=== PATIENT | female | born 1950 | race Caucasian/White ===

== ENCOUNTER → 2021-03-07 | Outpatient (CLI) | payer OTHER ==
[~2021-03-07] MED LIST: ASPIRIN EC81 MG PO; CELEBREX200 MG PO; DULOXETINE HCL30 MG PO; ENDOCET 7.5-321 EACH PO; FOLIC ACID1 MG PO; LEVOTHYROXINE112 MC1 PO; LISINOPRIL5 MG PO; METHOTREXATE T2.5 MG PO; OMEPRAZOLE20 M1 PO; VITAMIN D21250 MCG PO
[2021-03-07 10:59] LABS: HEMOGLOBIN 12.9 gm/dl (12.3-15.3); RED BLOOD COUNT 3.98 M/UL (4.00-5.10); WHITE BLOOD COUNT 7.3 K/UL (4.5-11.0)
[2021-03-07 11:21] LABS: BUN/CREATININE RATIO 28 (0-10)
== END ==
LOC: EDSTATUS 09:30 → OPSV2 09:30
PROVIDERS: Orthopaedic Surgery
DX: Z01.818 Encounter for other preprocedural examination (principal); M16.11 Unilateral primary osteoarthritis, right hip
CPT/HCPCS: 80048; 85027; 93005

== ENCOUNTER 2021-03-15 08:41 | Observation (INO) | payer OTHER ==
[~2021-03-15] VITALS: Ht 160 cm; Wt 76.7 kg
[~2021-03-15 08:41] MED LIST changes: -ASPIRIN EC81 MG PO; -ENDOCET 7.5-321 EACH PO
[2021-03-15 09:41] LABS: BUN/CREATININE RATIO 21 (0-10)
[2021-03-15] MEDS ORDERED: ASPIRIN EC81 MG PO (11:51)
[2021-03-15] MEDS ORDERED: ENDOCET 7.5-321 EACH PO (11:51)
[2021-03-16 06:45] LABS: HEMOGLOBIN 9.9 gm/dl (12.3-15.3); RED BLOOD COUNT 3.08 M/UL (4.00-5.10); WHITE BLOOD COUNT 15.4 K/UL (4.5-11.0)
[2021-03-16 07:02] LABS: BUN/CREATININE RATIO 24 (0-10)
== END 2021-03-16 16:34 | disposition home or self-care (01) ==
LOC: OR 08:41 → EDSTATUS 14:15 → OR 15:00 → M/S 15:00
PROVIDERS: ADMIT Orthopaedic Surgery
DX: M16.11 Unilateral primary osteoarthritis, right hip (principal); Z96.642 Presence of left artificial hip joint; E06.3 Autoimmune thyroiditis; M79.7 Fibromyalgia; Z88.2 Allergy status to sulfonamides; K21.9 Gastro-esophageal reflux disease without esophagitis; I10 Essential (primary) hypertension; E03.9 Hypothyroidism, unspecified; I95.2 Hypotension due to drugs; Z20.822 Contact with and (suspected) exposure to COVID-19; Z87.891 Personal history of nicotine dependence; Z88.1 Allergy status to other antibiotic agents
CPT/HCPCS: 36415; 73501; 73502; 76000; 80048; 85027; 86850; 86900; 86901; 97116-GP-CQ; 97161; 97166; 97530-GP-CQ; 97535; C1776; G0378; J0171; J0690; J1100; J1170; J1885; J2270; J2370; J2405; J2550; J2704; J2795; J3370; J7050; J7120

== ENCOUNTER → 2022-01-10 | Outpatient (CLI) | payer OTHER ==
[~2022-01-10] MED LIST changes: +ASPIRIN EC81 MG PO; +ENDOCET 7.5-321 EACH PO
== END ==
LOC: KOH-I 01-05 14:30
DX: Z01.818 Encounter for other preprocedural examination (principal); M19.012 Primary osteoarthritis, left shoulder
CPT/HCPCS: 73200